=== PATIENT | male | born 1975 | race Caucasian/White ===

== ENCOUNTER 2017-02-24 09:39 | Emergency (ER) | payer OTHER ==
[~2017-02-24] VITALS: Wt 92.0 kg
[2017-02-24] MEDS ORDERED: IBUPROFEN 800 MG TAB PO ONE (10:30)
[2017-02-24] MEDS ORDERED: HYDROCODONE/APAP (5/325) TAB PO ONE (11:00)
--- NOTE | 2017-02-24 11:07 | ERD ---
ER Documentation Chief Complaint Date/Time DATE: 02/24/17 TIME: 11:06 Chief Complaint right rib pain after getting hit while playing, no sob HPI This is a 41-year-old male presenting to the emergency department for right- sided rib pain after football injury. Patient states he was hit in the chest while playing football 2 days ago. Patient states he now has pain to right side of rib cage rating pain 10/10. No bruising or obvious deformity. No shoulder or back pain. No shortness of breath or difficulty breathing. No heart palpitations. ROS All systems reviewed and are negative except as per history of present illness. Medications Home Meds Active Scripts Ibuprofen* (Motrin*) 600 Mg Tab, 600 MG PO Q6, #30 TAB Prov:CHAD TUTTLE NP 02/24/17 Hydrocodone/Acetaminophen (Flora 5-325 Tablet) 1 Each Tablet, 1 TAB PO Q6H Y for PAIN, #5 TAB Prov:CHAD TUTTLE NP 02/24/17 Allergies Allergies: Coded Allergies: No Known Allergy (Unverified , 02/24/17) PMhx/Soc Medical and Surgical Hx: pt denies Medical Hx, pt denies Surgical Hx Hx Alcohol Use: No Hx Substance Use: No Hx Tobacco Use: No Smoking Status: Never smoker Physical Exam Vitals Vital Signs Date Time Temp Pulse Resp B/P Pulse Ox O2 Delivery O2 Flow Rate FiO2 02/24/17 09:43 97.9 71 17 142/89 100 Physical Exam Const: No acute distress, alert Head: Atraumatic Eyes: Normal Conjunctiva ENT: Normal External Ears, Nose and Mouth. Neck: Full range of motion..~ No meningismus. Resp: Clear to auscultation bilaterally. No wheezing, rhonchi or crackles. No stridor or labored breathing. No intercostal retractions. Patient is talking in complete sentences. Pain to palpation of right sided chest anteriorly and lateral aspect of right chest Cardio: Regular rate and rhythm, no murmurs Abd: Soft, non tender, non distended. Normal bowel sounds Skin: No petechiae or rashes Back: No midline or flank tenderness Ext: No cyanosis, or edema Neur: Awake and alert Psych: Normal Mood and Affect Results 24 hrs Current Medications Medications (Trade) Dose Ordered Sig/Nick Route PRN Reason Start Time Stop Time Status Last Admin Dose Admin Ibuprofen (Motrin) 800 mg ONCE ONCE PO 02/24/17 10:30 02/24/17 10:31 DC Acetaminophen/ Hydrocodone Bitart (Flora (5/325)) 1 tab ONCE ONCE PO 02/24/17 11:00 02/24/17 11:01 DC 02/24/17 10:39 Procedures/MDM [place] [address] Radiology Main Line: [phone] DIAGNOSTIC IMAGING REPORT Patient: TAY TOLEDO : 1975 Age: 41 Sex: M MR #: [id number] DOS: 02/24/17 1026 Ordering MD: CHAD HESTER NP Location: [facility] Room/Bed: PROCEDURE: XR Chest. CLINICAL INDICATION: chest pain TECHNIQUE: Single frontal view of the chest was obtained COMPARISON: None FINDINGS: The heart and mediastinum are within normal limits. The lungs are clear. There is no pleural effusion or pneumothorax. RPTAT: AA IMPRESSION: No acute disease. [place] [address] Radiology Main Line: [phone] DIAGNOSTIC IMAGING REPORT Patient: TAY TOLEDO : 1975 Age: 41 Sex: M MR #: [id number] DOS: 02/24/17 1026 Ordering MD: CHAD HESTER NP Location: [facility] Room/Bed: PROCEDURE: XR ribs . CLINICAL INDICATION: pain TECHNIQUE: AP and oblique views of the right ribs were obtained. A metallic marker was placed in the right lower chest. COMPARISON: None FINDINGS: The bone mineralization is normal. There is no acute fracture or subluxation. The soft tissues are unremarkable. RPTAT: AA IMPRESSION: No acute fracture. MDM: This is a 41-year-old male presenting to emergency department for right- sided chest wall pain after being hit playing football. No signs or symptoms of respiratory distress. Oxygen saturation 100% on room air and respirations 17 /min. Patient is afebrile and vital signs are stable. Chest x-ray, right rib x -ray ordered. Patient given Flora 5/325 mg while in the ED. Patient states pain improved after reassessment. X-ray right rib and chest x-ray reviewed by radiologist as no acute fracture and no acute disease. Vital signs remained stable. Patient is breathing unlabored. Low suspicion for acute dislocation or fracture. Low suspicion for pneumothorax. Patient is appropriate for outpatient management and will be given prescription for ibuprofen 600 mg #30 and Flora 5/325 #5. Instructed patient to follow-up with primary care provider in the next 2-3 days for reassessment and additional management. Return to ED for any high fever, chest pain, difficulty breathing, shortness breath, wheezing, vomiting, diarrhea, abdominal pain or any new or worsening symptoms. Patient verbalizes understanding. All questions answered at discharge. Disclaimer: Inadvertent spelling and grammatical errors are likely due to EHR/ dictation software use and do not reflect on the overall quality of patient care. Also, please note that the electronic time recorded on this note does not necessarily reflect the actual time of the patient encounter. Departure Diagnosis: Primary Impression: Rib injury Condition: Stable CHAD TUTTLE NP Feb 24, 2017 11:07
--- NOTE | 2017-02-24 11:33 | RADRPT ---
PROCEDURE: XR Chest. CLINICAL INDICATION: chest pain TECHNIQUE: Single frontal view of the chest was obtained COMPARISON: None FINDINGS: The heart and mediastinum are within normal limits. The lungs are clear. There is no pleural effusion or pneumothorax. RPTAT: AA IMPRESSION: No acute disease. .Anthony Hook MD, Date Time Electronically viewed and signed by .Anthony Hook MD, on 02/24/2017 11:33 .S/
--- NOTE | 2017-02-24 11:34 | RADRPT ---
PROCEDURE: XR ribs . CLINICAL INDICATION: pain TECHNIQUE: AP and oblique views of the right ribs were obtained. A metallic marker was placed in t he right lower chest. COMPARISON: None FINDINGS: The bone mineralization is normal. There is no acute fracture or subluxation. The soft tissues are unremarkable. RPTAT: AA IMPRESSION: No acute fracture. .Anthony Hook MD, MD Date Time Electronically viewed and signed by .Anthony Hook MD, on 02/24/2017 11:34 .S/
[2017-02-24] MEDS ORDERED: HYDR-906 PO (11:40)
[2017-02-24] MEDS ORDERED: IBUP-1542 PO (11:40)
[2017-02-24 11:51] VITALS: BP 128/65; PULSE 64
== END 2017-02-24 11:52 | disposition home or self-care (01) ==
LOC: FTE 09:39
DX: S29.9XXA Unspecified injury of thorax, initial encounter (principal); W21.01XA Struck by football, initial encounter; Y92.9 Unspecified place or not applicable
CPT/HCPCS: 71010; 71100; Z7502; Z7610